=== PATIENT | male | born 1970 | race Two or more races ===

== ENCOUNTER 2017-08-21 07:04 | Emergency (ER) | payer OTHER ==
[2017-08-21 08:16] LABS: AMPHETAMINE/METHAMPHETAMINE NEG (NEG); BARBITURATES NEG (NEG); BENZODIAZEPINES NEG (NEG); CANNABINOIDS NEG (NEG); COCAINE NEG (NEG); METHADONE NEG (NEG); OPIATES NEG (NEG); PHENCYCLIDINE NEG (NEG)
[2017-08-21 12:16] VITALS: BP 184/126
== END 2017-08-21 07:52 | disposition home or self-care (01) ==
LOC: ER 07:04
DX: Z02.83 Encounter for blood-alcohol and blood-drug test (principal); Z53.21 Procedure and treatment not carried out due to patient leaving prior to being seen by health care provider
CPT/HCPCS: 36415; 80307; 99281; 99283; G0479

== ENCOUNTER 2020-01-30 06:24 | Inpatient (IN) | payer BC, OTHER ==
[~2020-01-30] VITALS: Ht 188 cm; Wt 88.4 kg
--- NOTE | 2020-01-30 06:40 | PHYS DOC ---
Past History Additional Past Medical Histor: Questionable prior kidney trouble Past Surgical History: No Surgical History Smoking: Non-smoker Alcohol Use: None Drug Use: None General Adult EDM: Chief Complaint: ABDOMINAL PAIN HPI: HPI: Patient is a 49-year-old male who presents to the emergency department for evaluation. He states that at about 3 AM he developed some abdominal pain located centrally, in his umbilical area, along with nausea and vomiting. He has not had any bloody emesis, or any diarrhea or bloody stools. He has not had any chest pain or shortness of breath. He arrives in the emergency department in acute pain, with dry heaves, and is diaphoretic. There are no known alleviating or exacerbating factors to his symptoms. He has not had similar symptoms in the past. Review of Systems: Review of Systems: Constitutional: Denies fever or chills Eyes: Denies change in visual acuity HENT: Denies nasal congestion or sore throat Respiratory: Denies cough or shortness of breath Cardiovascular: Denies chest pain or edema GI: As per HPI : Denies dysuria Musculoskeletal: Denies back pain or joint pain Integument: Denies rash Neurologic: Denies headache, focal weakness or sensory changes Endocrine: Denies polyuria or polydipsia Lymphatic: Denies swollen glands Psychiatric: Denies depression or anxiety Heart Score: Risk Factors: Risk Factors: DM, Current or recent (<one month) smoker, HTN, HLP, family history of CAD, obesity. Risk Scores: Score 0 - 3: 2.5% MACE over next 6 weeks - Discharge Home Score 4 - 6: 20.3% MACE over next 6 weeks - Admit for Clinical Observation Score 7 - 10: 72.7% MACE over next 6 weeks - Early Invasive Strategies Current Medications: Current Meds: Current Medications Medications (Trade) Dose Ordered Sig/Sergei Start Time Stop Time Status Last Admin Dose Admin Lactated Ringer's 1,000 ml @ 1,000 mls/hr Q1H 01/30/20 06:31 01/30/20 07:30 UNV Ondansetron HCl (Zofran) 4 mg 1X ONCE 01/30/20 06:45 01/30/20 06:46 UNV Physical Exam: PE: PHYSICAL EXAM: CONSTITUTIONAL: Well developed, well nourished HEAD: normocephalic, atraumatic EENT: PERRL, EOMI. Conjunctivae normal color, sclerae non-icteric; moist mucous membranes. NECK: Supple, non-tender; no meningismus. LUNGS: Lungs CTA, patient is hyperventilating. Normal air movement. HEART: Regular rate and rhythm, no murmur CHEST: No deformity; non-tender ABDOMEN: The abdomen is diffusely tender, with some voluntary guarding, without focal tenderness, rebound. There is some voluntary guarding present. Exam was somewhat limited secondary to the patient's discomfort and not being tolerant of exam. EXTREM: Normal ROM; no deformity, no calf tenderness. Normal pulses palpable in all extremities. There is no pedal edema. SKIN: No rash; the patient is diaphoretic. NEURO: Alert; normal speech and cognition; CN's grossly intact; strength grossly intact without focal deficit. BACK: No CVA TTP. Current Patient Data: Labs: Laboratory Tests Test 01/30/20 06:30 01/30/20 07:02 White Blood Count 11.9 x10^3/uL Red Blood Count 5.03 x10^6/uL Hemoglobin 16.3 g/dL Hematocrit 47.0 % Mean Corpuscular Volume 94 fL Mean Corpuscular Hemoglobin 33 pg Mean Corpuscular Hemoglobin Concent 35 g/dL Red Cell Distribution Width 13.8 % Platelet Count 233 x10^3/uL Neutrophils (%) (Auto) 67 % Lymphocytes (%) (Auto) 23 % Monocytes (%) (Auto) 9 % Eosinophils (%) (Auto) 1 % Basophils (%) (Auto) 0 % Neutrophils # (Auto) 8.0 x10^3uL Lymphocytes # (Auto) 2.7 x10^3/uL Monocytes # (Auto) 1.0 x10^3/uL Eosinophils # (Auto) 0.1 x10^3/uL Basophils # (Auto) 0.0 x10^3/uL Sodium Level 140 mmol/L Potassium Level 3.8 mmol/L Chloride Level 104 mmol/L Carbon Dioxide Level 24 mmol/L Anion Gap 12 Blood Urea Nitrogen 14 mg/dL Creatinine 1.4 mg/dL Estimated GFR (Cockcroft-Gault) 53.9 BUN/Creatinine Ratio 10 Glucose Level 142 mg/dL Calcium Level 9.4 mg/dL Total Bilirubin 1.2 mg/dL Aspartate Amino Transf (AST/SGOT) 91 U/L Alanine Aminotransferase (ALT/SGPT) 70 U/L Alkaline Phosphatase 93 U/L Total Protein 7.4 g/dL Albumin 3.7 g/dL Albumin/Globulin Ratio 1.0 Lipase 94342 U/L Lactic Acid Level 4.8 mmol/L Current Medications Medications (Trade) Dose Ordered Sig/Sergei Route PRN Reason Start Time Stop Time Status Last Admin Dose Admin Lactated Ringer's 1,000 ml @ 1,000 mls/hr Q1H IV 01/30/20 07:00 01/30/20 08:00 DC 01/30/20 06:45 Ondansetron HCl (Zofran) 4 mg 1X ONCE IVP 01/30/20 07:00 01/30/20 07:01 DC 01/30/20 06:45 Morphine Sulfate (Morphine 4mg Syringe) 4 mg 1X ONCE IV 01/30/20 07:00 01/30/20 07:01 DC 01/30/20 06:45 Lorazepam (Ativan Inj) 1 mg 1X ONCE IVP 01/30/20 07:00 01/30/20 07:01 DC 01/30/20 06:46 Iohexol (Omnipaque 300 Mg/ml) 75 ml 1X ONCE IV 01/30/20 07:00 01/30/20 07:01 DC 01/30/20 07:33 Morphine Sulfate (Morphine 4mg Syringe) 4 mg STK-MED ONCE .ROUTE 01/30/20 06:41 01/30/20 06:41 DC Lorazepam (Ativan Inj) 2 mg STK-MED ONCE .ROUTE 01/30/20 06:40 01/30/20 06:41 DC Info (Do NOT chart on this entry -- for MONITORING) 1 each PRN DAILY PRN MC SEE COMMENTS 01/30/20 06:45 02/01/20 06:44 Morphine Sulfate (Morphine 4mg Syringe) 4 mg 1X ONCE IV 01/30/20 07:15 01/30/20 07:16 DC 01/30/20 07:09 Sodium Chloride 1,000 ml @ 1,000 mls/hr 1X ONCE IV 01/30/20 07:15 01/30/20 08:14 DC 01/30/20 07:18 Ondansetron HCl (Zofran) 4 mg 1X ONCE IVP 01/30/20 07:15 01/30/20 07:18 DC 01/30/20 07:18 Hydromorphone HCl (Dilaudid) 1 mg 1X ONCE IV 01/30/20 08:15 01/30/20 08:16 DC 01/30/20 08:09 Ondansetron HCl (Zofran) 4 mg 1X ONCE IVP 01/30/20 08:15 01/30/20 08:16 DC 01/30/20 08:08 EKG: EKG: Normal sinus rhythm with a normal rate, normal axis, normal intervals, there are no acute ischemic ST/T changes. [] Radiology/Procedures: Radiology/Procedures: PROCEDURE: CT ABD PELV W/ IV CONTRST ONLY Examination: CT ABD PELV W/ IV CONTRST ONLY History: Reason: abdominal pain, NV, recent diagnosis of kidney failure Comparison/Correlation: None Findings: Axial images of the abdomen and pelvis with IV contrast. Sagittal and coronal reformatted images were provided. Visualized lung bases are clear. Small hiatal hernia is present. Liver, spleen, adrenal glands, and kidneys are unremarkable. Edematous appearance of the pancreas diffusely is noted. Moderate quantity of peripancreatic fluid is noted and this abuts the anterior pararenal fascia bilaterally. Associated contiguous perisplenic ascites is small in quantity. No biliary dilatation. Portal vein opacifies normally with contrast. No enlarged abdominal or pelvic lymph nodes. Moderate quantity of stool in the colon is present. No bowel obstruction or extraluminal gas. There is no inflammatory finding about cecum. Trace pelvic fluid appears be present. Prostate gland is enlarged measuring 5.4 cm transverse by 3.9 cm anteroposterior. Bilateral undescended testicles are present at the symphysis pubis level. Bony structures are unremarkable for the patient's age. Impression: Large quantity of peripancreatic fluid. No loculated collection. Edematous appearance of the pancreas. Findings are compatible with acute pancreatitis. No biliary dilatation. Prostatomegaly. Bilateral undescended testicles. Small hiatal hernia. [] Course & Med Decision Making: Course & Med Decision Making Pertinent Labs and Imaging studies reviewed. (See chart for details) [] 8:35 AM: The patient's condition remained stable, he appears more comfortable. I discussed the case with the hospitalist who will admit the p atient for further evaluation and monitoring. Although gallstone pancreatitis is a diagnostic possibility, the mild elevation in LFTs could also be related to inflammation. His LFTs will need to be monitored closely. There is no evidence of biliary obstruction on CT. Dragon Disclaimer: Dragon Disclaimer: This electronic medical record was generated, in whole or in part, using a voice recognition dictation system. Departure Departure: Impression: Primary Impression: Acute pancreatitis Disposition: ADMITTED INPATIENT Admitting Physician: Bran Chapman Condition: STABLE Referrals: SABRINA MATHEW MD (PCP) Justification of Admission: Justification of Admission: Justification of Admission Dx: Yes IMER DEJESUS MD Jan 30, 2020 06:40
[2020-01-30] MEDS ORDERED: MORPHINE SULFATE 4 MG/ML DISP.SYRIN. ONE (06:41)
[2020-01-30] MEDS ORDERED: CONTRAST GIVEN MC PRN (06:45)
[2020-01-30] MEDS ORDERED: ONDANSETRON PF 4 MG/2 ML VIAL. IVP ONE ×3 (07:00→08:15)
[2020-01-30] MEDS ORDERED: IOHEXOL 300 MG/ML 75 ML VIAL. IV ONE (07:00)
[2020-01-30] MEDS ORDERED: MORPHINE SULFATE 4 MG/ML DISP.SYRIN. IV ONE ×2 (07:00→07:15)
[2020-01-30] MEDS ORDERED: IV RINGERS SOLUTION,LACTATED 1,000 ML IV SCH (07:00)
[2020-01-30 07:06] LABS: BASO % 0 % (0-3); EOS # 0.1 x10^3/uL (0.0-0.7); EOS % 1 % (0-3); HEMOGLOBIN 16.3 g/dL (13.0-17.5); LYMPH # 2.7 x10^3/uL (1.0-4.8); LYMPH % 23 % (24-48); MEAN CORPUSCULAR HEMOGLOBIN 33 pg (25-35); MEAN CORPUSCULAR HGB CONC 35 g/dL (31-37); MEAN CORPUSCULAR VOLUME 94 fL (79-100); MONO % 9 % (0-9); NEUT % 67 % (31-73); PLATELET COUNT 233 x10^3/uL (140-400); RED BLOOD COUNT 5.03 x10^6/uL (4.30-5.70); RED CELL DISTRIBUTION WIDTH 13.8 % (11.5-14.5); WHITE BLOOD COUNT 11.9 x10^3/uL (4.0-11.0)
[2020-01-30 07:12] LABS: CALCIUM 9.4 mg/dL (8.5-10.1); CREATININE 1.4 mg/dL (0.7-1.3); GFR 53.9; POTASSIUM 3.8 mmol/L (3.5-5.1)
[2020-01-30] MEDS ORDERED: IV NORMAL SALINE 1,000ML 1,000 ML IV ONE (07:15)
[2020-01-30 07:19] LABS: ALBUMIN 3.7 g/dL (3.4-5.0); TOTAL BILIRUBIN 1.2 mg/dL (0.2-1.0); TOTAL PROTEIN 7.4 g/dL (6.4-8.2)
[2020-01-30] MEDS ORDERED: HYDROmorphone PF 1 MG/ML DISP.SYRIN IV ONE (08:15)
--- NOTE | 2020-01-30 08:30 | RAD ---
Examination: CT ABD PELV W/ IV CONTRST ONLY History: Reason: abdominal pain, NV, recent diagnosis of kidney failure Comparison/Correlation: None Findings: Axial images of the abdomen and pelvis with IV contrast. Sagittal and coronal reformatted images were provided. Visualized lung bases are clear. Small hiatal hernia is present. Liver, spleen, adrenal glands, and kidneys are unremarkable. Edematous appearance of the pancreas diffusely is noted. Moderate quantity of peripancreatic fluid is noted and this abuts the anterior pararenal fascia bilaterally. Associated contiguous perisplenic ascites is small in quantity. No biliary dilatation. Portal vein opacifies normally with contrast. No enlarged abdominal or pelvic lymph nodes. Moderate quantity of stool in the colon is present. No bowel obstruction or extraluminal gas. There is no inflammatory finding about cecum. Trace pelvic fluid appears be present. Prostate gland is enlarged measuring 5.4 cm transverse by 3.9 cm anteroposterior. Bilateral undescended testicles are present at the symphysis pubis level. Bony structures are unremarkable for the patient's age. Impression: Large quantity of peripancreatic fluid. No loculated collection. Edematous appearance of the pancreas. Findings are compatible with acute pancreatitis. No biliary dilatation. Prostatomegaly. Bilateral undescended testicles. Small hiatal hernia. PQRS Compliance Statement: One or more of the following individualized dose reduction techniques were utilized for this examination: 1. Automated exposure control 2. Adjustment of the mA and/or kV according to patient size 3. Use of iterative reconstruction technique Electronically signed by: Brandon Rosenberg MD (01/30/2020 8:27 AM) [id number]
[2020-01-30] MEDS ORDERED: IV DEXTROSE 5%-LACT RINGERS 1,000 ML IV ONE (08:45)
[2020-01-30 09:16] LABS: BACTERIA,URINE 0 /HPF (0-FEW); BILIRUBIN,URINE NEG (NEG); CLARITY,URINE CLEAR; COLOR,URINE YELLOW; GLUCOSE,URINE NEG (NEG); NITRITE,URINE NEG (NEG); RBC,URINE 0 /HPF (0-2); SQUAMOUS EPITHELIAL CELL,UR FEW /LPF; UROBILINOGEN,URINE 0.2 mg/dL (0.2 mg/dL); WBC,URINE OCC /HPF (0-4)
[2020-01-30 09:18] LABS: BARBITURATES NEG (NEG); BENZODIAZEPINES NEG (NEG); CANNABINOIDS NEG (NEG); COCAINE NEG (NEG); METHADONE NEG (NEG); OPIATES POS (NEG); PHENCYCLIDINE NEG (NEG)
[2020-01-30 09:24] LABS: AMPHETAMINE/METHAMPHETAMINE NEG (NEG)
[2020-01-30 10:00] VITALS: BP 99/61
[2020-01-30] MEDS: MORPHINE SULFATE 4 MG/ML DISP.SYRIN. IVP PRN ×2 (10:20→13:06)
--- NOTE | 2020-01-30 12:12 | EKG ---
[address] [address] Test Date: 2020-01-30 Test Time: 06:59:13 Pat Name: BETTYE SOSA Department: Room: Gender: M Division Order Technician: : 1970 Requested By: IMER DEJESUS Order Number: [id number] Reading MD: Measurements Intervals [place] Rate: 56 P: 90 AK: 180 QRS: 63 QRSD: 102 T: 56 QT: 464 QTc: 450 Interpretive Statements SINUS RHYTHM NO SPECIFIC ECG ABNORMALITIES RI6.02 No previous ECG available for comparison
--- NOTE | 2020-01-30 12:51 | NUR ---
The patient, BETTYE SOSA, 49 y/o, M admitted by CRESCENCIO CORNELIUS MD, was given written information regarding hospital policies, unit procedures and contact persons. Valuables were checked and left with patient. Pt arrived to unit via EMS from ED at 0945. Assisted him to ambulate to restroom, pt slightly unsteady but it is due to pain medications from ED. Oriented to room, pain medication administered, call light within reach. Will continue to monitor.
[2020-01-30] MEDS: ONDANSETRON PF 4 MG/2 ML VIAL. IVP PRN ×3 (13:06→21:56)
[2020-01-30] MEDS: IV DEXTROSE 5 %-0.45 % NACL 1,000 ML IV SCH (14:46)
[2020-01-30 14:50] VITALS: BP 131/74
[2020-01-30] MEDS: HYDROmorphone PF 2 MG/ML VIAL IV PRN ×3 (14:50→21:18)
--- NOTE | 2020-01-30 16:04 | RAD ---
INDICATION : Reason: Nausea/Vomitting-Pancreatitis on CT scan-??? acute cholecystitis / Spl. Instructions: / History: COMPARISON: CT earlier same day TECHNIQUE: Multiple ultrasound images obtained through the abdomen in grayscale and color. FINDINGS: Liver: Mildly echogenic Gallbladder: Gallstones are visualized. IVC: Partially distended at level of liver. Common Bile Duct: Not dilated. Pancreas: Fluid is seen at pancreas pancreatic duct measures up to about 2-3 mm. Right Kidney: No hydronephrosis. IMPRESSION: * Fluid is seen adjacent to the pancreas with pancreatic ductal dilatation in this patient with known pancreatitis. There is some free fluid seen. * Gallstones are visualized. Portions the gallbladder wall is prominent in thickness measuring up to about 6 mm. Could be from primary gallbladder inflammation, reactive changes to adjacent hepatic or pancreatic inflammation or secondary to systemic process such as hypoproteinemia. If further evaluation for cholecystitis is desired nuclear hepatobiliary scan could BE obtained Electronically signed by: Angel Valentine MD (01/30/2020 4:01 PM) [id number]
--- NOTE | 2020-01-30 17:07 | HP ---
ADMIT DATE: 01/30/2020 HISTORY OF PRESENT ILLNESS: The patient is a 49-year-old male patient who presented to the Emergency Room for evaluation. He stated about 3:00 in the morning, he developed some abdominal pain located centrally in his umbilical area along with nausea and vomiting, has not had any bloody emesis or any diarrhea or bloody stool, has not had any chest pain or shortness of breath. He arrived in the Emergency Room in acute pain with dry heaves and was diaphoretic. There are no alleviating or exacerbating factors in his symptoms. He has never had similar symptoms in the past. He was evaluated in the Emergency Room and his lab work showed that the patient has leukocytosis with a white cell count of 11,900. His chemistry showed his serum lipase was ____. His liver enzymes were slightly elevated, although alkaline phosphatase was normal. He has lactic acidosis and creatinine slightly elevated 1.4. His urinalysis was unremarkable and toxic screen was positive for opiates. He has had a CT scan of the abdomen and pelvis with IV contrast, which showed that the visualized lung bases are clear and he has a small hiatal hernia. The liver, spleen, adrenal glands and kidneys are unremarkable. Edematous appearance of the pancreas diffusely is noted. Moderate quantity of peripancreatic fluid is noted and this abuts the anterior pararenal fascia bilaterally associated with contiguous perisplenic ascites ____ dilatation. The portal vein opacifies normally with contrast. He has no enlarged abdominal or pelvic lymph nodes. There is moderate quantity of stool in the colon present, no bowel obstruction or extraluminal gas. There is no inflammatory finding about the cecum, trace pelvic fluid present. His prostate gland is enlarged measuring 5.4 cm transverse x 3.9 cm anterior posterior. Bilateral undescended testicles are present at the symphysis pubis level. Bony structures are unremarkable for the patient's age. The patient was basically diagnosed with acute pancreatitis, benign prostatic hypertrophy, bilateral undescended testicles and small hiatal hernia. The patient was admitted for pain management. He was kept n.p.o., started on IV fluid, IV hydromorphone and Zofran. He does not drink alcohol. There is no obvious acute cholecystitis and he apparently carries a diagnosis of hyperlipidemia, although he is not on any medication for that. PAST MEDICAL HISTORY: An episode of acute kidney injury that has resolved spontaneously according to him and has also hyperlipidemia. PAST SURGICAL HISTORY: Unremarkable. ALLERGIES: He has no known drug allergies. MEDICATIONS: He is currently on no medication by prescription or over the counter. FAMILY HISTORY: He has 3 living sisters, all older, but does not keep in contact with them. Has 1 older brother at age of 18 as he was shocked. He has two half-brothers, one of overdose and the other one also was , but does not know the cause of his . His father at the age of 73 because of myocardial infarction and mother at age of 46 because of brain aneurysm. SOCIAL HISTORY: He is . He has 1 son and 1 daughter. He quit smoking in his early 20s. He does not drink alcohol or use recreational drugs. PHYSICAL EXAMINATION: GENERAL: When I examined him this afternoon, he was clearly in severe pain. There was no pallor, jaundice, cyanosis or thyromegaly. No jugular venous distention. No lower limb edema. VITAL SIGNS: His heart rate was 45, blood pressure was 99/61, temperature was 97, respiratory rate was 16, and oxygen saturation was 100%. HEAD, EYES, EARS, NOSE AND THROAT: Showed normocephalic, atraumatic. NECK: Supple. HEART: Showed normal first and second heart sounds. No gallop or murmur. CHEST: Clear to auscultation. No crepitation or rhonchi. ABDOMEN: Slightly distended, mostly soft with tenderness mostly in the epigastric area. No guarding or rigidity. No organomegaly. All hernial orifices intact. Bowel sounds normal. NEUROLOGICALLY: He was awake, alert, responding appropriately. All cranial nerves intact. EXTREMITIES: He moves extremities without difficulty. LABORATORY DATA: His lab work showed a white cell count of 11,900, hemoglobin 16, hematocrit 47, MCV 94 and platelet count of 233,000. Serum sodium was 140, potassium 3.8, chloride 104, bicarbonate 24, anion gap of 12, BUN 14, creatinine 1.4. Estimated GFR was 54 mL per minute. His glucose was 142, lactic acid was 4.8, calcium was 9.4. Total bilirubin, AST, and ALT were elevated. Alkaline phosphatase is normal. Total protein 7.4, albumin was 3.7. Serum lipase was ____. Urinalysis showed the urine was yellow, clear with a pH of 5.5, specific gravity of 1.010. The urine was negative for protein, glucose. There was a small amount of ketones. The urine was negative for blood, nitrite and leukocyte esterase. There were no rbc's, occasional wbc's, and very few bacteria. His urine toxic screen was positive for opiates, but negative for methadone, barbiturates, phencyclidine, amphetamine, methamphetamine, benzodiazepine, cocaine, cannabinoids and alcohol. His CT scan was consistent with acute pancreatitis. He has also enlarged prostate, bilateral undescended testicles and small hiatal hernia. ASSESSMENT AND PLAN: The patient will be kept n.p.o., continue with IV fluid, IV hydromorphone and Zofran. We will follow his labs on a daily basis. I checked his fasting lipid profile to rule out the possibility of hypertriglyceridemia as a cause of his pancreatitis ____ DICTATION ENDS HERE CRESCENCIO CORNELIUS MD DR: ELISEO/monique JOB#: [id number] / [id number]
[2020-01-30 20:16] VITALS: BP 158/90
[2020-01-30 23:44] VITALS: BP 159/89
[2020-01-31] MEDS: IV DEXTROSE 5 %-0.45 % NACL 1,000 ML IV SCH ×2 (00:22→10:12)
[2020-01-31] MEDS: HYDROmorphone PF 2 MG/ML VIAL IV PRN ×6 (00:52→21:11)
[2020-01-31] MEDS: ONDANSETRON PF 4 MG/2 ML VIAL. IVP PRN ×4 (02:52→17:10)
[2020-01-31 06:09] VITALS: BP 147/88
[2020-01-31 06:21] LABS: HEMATOCRIT 49.7 % (39.0-53.0); RED BLOOD COUNT 5.25 x10^6/uL (4.30-5.70); RED CELL DISTRIBUTION WIDTH 14.2 % (11.5-14.5); WHITE BLOOD COUNT 17.5 x10^3/uL (4.0-11.0)
[2020-01-31 06:30] LABS: ALBUMIN 3.2 g/dL (3.4-5.0); ALBUMIN/GLOBULIN RATIO 0.9 (1.0-1.7); CALCIUM 8.2 mg/dL (8.5-10.1); CREATININE 1.4 mg/dL (0.7-1.3); GFR 53.9; POTASSIUM 4.4 mmol/L (3.5-5.1); TOTAL BILIRUBIN 0.9 mg/dL (0.2-1.0); TOTAL PROTEIN 6.6 g/dL (6.4-8.2)
[2020-01-31] MEDS ORDERED: ONDANSETRON PF 4 MG/2 ML VIAL. ONE (11:20)
[2020-01-31 11:24] VITALS: BP 156/96
--- NOTE | 2020-01-31 12:31 | PN ---
DATE: 01/31/2020 SUBJECTIVE: The patient is resting, slightly propped up in bed, sleeping comfortably, in no apparent distress. He apparently just received his hydromorphone. He denied any further episodes of nausea and vomiting. His lab work showed that his white cell count went up 17,500; however, his lactic acid is down to 2.2. His serum lipase is down to 3530. PHYSICAL EXAMINATION: GENERAL: When I examined him, he looked well and was clearly in no apparent respiratory distress. No pallor, jaundice, cyanosis or thyromegaly. No jugular venous distention or limb edema. VITAL SIGNS: His heart rate was 82, blood pressure 156/96, temperature was 98.6, respiratory rate 20, and oxygen saturation was 98%. HEAD, EYES, EARS, NOSE AND THROAT: Normocephalic, atraumatic. NECK: Supple. CARDIAC: Normal first and second heart sounds. No gallop or murmur. CHEST: Clear to auscultation. No crepitation or rhonchi. ABDOMEN: Distended, soft with tenderness mostly in epigastric area. No guarding or rigidity. No organomegaly. All hernial orifice intact. Bowel sounds normal. NEUROLOGIC: He was awake, alert, responding appropriately. All cranial nerves intact. He moves extremities without difficulty. His intake and output are incompletely recorded. LABORATORY DATA: His lab work this morning showed a serum sodium 136, potassium 4.4, chloride 102, bicarbonate 29, anion gap of 5, BUN 13, creatinine 1.4, estimated GFR was 53 mL per minute. His glucose 166, calcium was 8.2. Total bilirubin, AST, ALT, alkaline phosphatase were normal. Total protein 6.6, albumin 3.2, lipase was 3530. His white cell count was 17,500, hemoglobin 17, hematocrit 49, MCV 95, and platelet count of 170,000. ASSESSMENT: His abdominal ultrasound showed that the fluid is seen adjacent to the pancreas and pancreatic ductal dilatation in this patient with known pancreatitis. There is some free fluid seen. Gallstones are visualized portion of the gallbladder wall is prominent in thickness measuring up to about 6 mm, could be from primary gallbladder inflammation and reactive changes to adjacent hepatic and pancreatic inflammation secondary to systemic process. If further evaluation for cystitis desired a nuclear hepatobiliary scan could be obtained. PLAN: My plan is to continue with IV fluid, continue with n.p.o. status. I will start him on Zosyn 2.25 grams IV every 8 hours. We will arrange for him to have hepatobiliary scan and we will repeat all his labs again tomorrow. We will consult the surgical team once his acute pancreatitis subsides. CRESCENCIO CORNELIUS MD DR: ELISEO/monique JOB#: [id number] / [id number]
[2020-01-31] MEDS: PIPERACILLIN/TAZOBACTAM 3.375 GM in IV NORMAL SALINE 50ML 50 ML IV SCH ×2 (12:52→17:34)
--- NOTE | 2020-01-31 13:54 | NUR ---
PATIENT IS A/O X4 UPON ASSESSMENT, C/O ABDOMINAL PAIN AND NAUSEA, REQUESTED MEDICATION, DILAUDID AND ZOFRAN GIVEN ORDERED. PT CONTINUED TO STAY NPO D/T HEPATOBILIARY STUDY ORDER. WILL CONTINUE TO MONITOR.
[2020-01-31 15:24] VITALS: BP 159/98
[2020-01-31] MEDS ORDERED: SINCALIDE IV ONE (16:00)
[2020-01-31] MEDS ORDERED: NORMAL SALINE IV ONE (16:00)
--- NOTE | 2020-01-31 17:00 | NUR ---
GOT A PHONE CALL FROM [employer], REPORTED PATIENT IS IN PAIN , REQUESTED PAIN MEDS. DR CORNELIUS WAS PAGED, GOT ORDER FOR FENTANYL 50MCG X1 IVP. WCTM.
--- NOTE | 2020-01-31 17:57 | RAD ---
HEPATOBILIARY SCAN WITH EJECTION FRACTION History: acute acalculous cholecystitis / epigastric pain, nausea and vomiting x1 day. Procedure: Serial static images are obtained of the liver and biliary system in the frontal projection following IV administration of 5.5 mCi of Technetium 99m Choletec. After filling of the gallbladder, 1.8 mcg of sincalide were infused over 30 minutes and dynamic imaging continued over this period. The gallbladder ejection fraction was calculated. Findings: There is prompt hepatic clearance of tracer from the blood pool. There is homogeneous distribution throughout the liver. There is normal filling of the gallbladder and normal emptying into the biliary system and small bowel. The gallbladder ejection fraction measures 23% (normal gallbladder EF is 35% or greater). IMPRESSION: 1. The cystic duct and common bile duct are patent. Negative for acute cholecystitis. 2. The gallbladder ejection fraction is abnormal measuring 23%. Findings may indicate gallbladder dyskinesia or chronic cholecystitis. Electronically signed by: Juventino Walden MD (01/31/2020 5:54 PM) [id number]
[2020-01-31 19:07] VITALS: BP 134/87
[2020-01-31 23:15] VITALS: BP 156/88
[2020-02-01] MEDS: PIPERACILLIN/TAZOBACTAM 3.375 GM in IV NORMAL SALINE 50ML 50 ML IV SCH ×5 (00:17→23:22)
[2020-02-01] MEDS: IV DEXTROSE 5 %-0.45 % NACL 1,000 ML IV SCH ×2 (01:02→12:15)
[2020-02-01] MEDS: HYDROmorphone PF 2 MG/ML VIAL IV PRN ×7 (01:21→23:22)
[2020-02-01 06:45] LABS: HEMATOCRIT 47.5 % (39.0-53.0); HEMOGLOBIN 16.2 g/dL (13.0-17.5); RED CELL DISTRIBUTION WIDTH 14.6 % (11.5-14.5); WHITE BLOOD COUNT 20.8 x10^3/uL (4.0-11.0)
[2020-02-01 07:13] LABS: ALBUMIN 2.6 g/dL (3.4-5.0); ALBUMIN/GLOBULIN RATIO 0.7 (1.0-1.7); CALCIUM 8.1 mg/dL (8.5-10.1); CREATININE 1.6 mg/dL (0.7-1.3); GFR 46.2; POTASSIUM 4.2 mmol/L (3.5-5.1); TOTAL BILIRUBIN 1.7 mg/dL (0.2-1.0); TOTAL PROTEIN 6.2 g/dL (6.4-8.2)
[2020-02-01 07:30] VITALS: BP 147/88
[2020-02-01] MEDS: ONDANSETRON PF 4 MG/2 ML VIAL. IVP PRN ×3 (08:26→18:32)
[2020-02-01 10:16] VITALS: BP 141/85
[2020-02-01] MEDS ORDERED: METOCLOPRAMIDE HCL 10 MG/2 ML VIAL. IVP ONE (11:45)
[2020-02-01] MEDS ORDERED: IV NORMAL SALINE 1,000ML 1,000 ML IV ONE (12:15)
--- NOTE | 2020-02-01 12:27 | PN ---
DATE: 02/01/2020 SUBJECTIVE: The patient is resting, slightly propped up in bed, in no apparent respiratory distress. He continued to complain of pain, nausea and vomiting. OBJECTIVE: GENERAL: On examining him, he looked well and was clearly in no apparent respiratory distress. No pallor, jaundice, cyanosis or thyromegaly. No jugular venous distention. No lower limb edema. VITAL SIGNS: His heart rate was 83, blood pressure was 141/85, temperature was 98.6, respiratory rate 20, and oxygen saturation was 96%. HEAD, EYES, EARS, NOSE AND THROAT: Showed he is normocephalic, atraumatic. NECK: Supple. HEART: Showed normal first and second heart sounds. No gallop, rub or murmur. CHEST: Clear to auscultation. No crepitation or rhonchi. ABDOMEN: Distended. Tenderness mostly in the epigastric area. No guarding or rigidity. No organomegaly. All hernial orifice intact. Bowel sounds normal. NEUROLOGIC: He was awake, alert, responding appropriately. All cranial nerves are intact. He moves extremities without difficulty. His intake over the last 24 hours was 2100, no output was recorded. LABORATORY DATA: As of this morning shows a white cell count is going up to 20,800, hemoglobin 16, hematocrit 47, MCV 95, and platelet count of 137,000. His chemistry showed that his serum sodium is 134, potassium 4.2, chloride 101, bicarbonate 28, anion gap of 5, BUN 21, creatinine 1.6, estimated GFR was 46 mL per minute, his glucose 154, calcium was 8.1. Total bilirubin, AST, ALT, alkaline phosphatase were normal. Total protein 6.2, albumin was 0.7. His serum triglycerides were 55, total cholesterol was 164, LDL was 106, VLDL was 11, HDL was 47 and ratio was 3. Serum lipase is down to 1766. ASSESSMENT: 1. Acute pancreatitis. 2. He has also large quantity of peripancreatic fluid, but no loculated fluid collection. 3. Acute on chronic kidney injury. His creatinine is slightly up from 1.4-1.6. 4. Mild hyponatremia. His HIDA scan showed that the cystic duct and common bile duct are patent negative for acute cholecystitis. The gallbladder ejection fraction is abnormal, measuring 23%. Findings indicate biliary dyskinesia or chronic cholecystitis. PLAN: My plan is to continue with IV fluid, probably a liter of normal saline bolus and continue with D5W. I will discuss with the surgical team whether it is time to consider laparoscopic cholecystectomy. CRESCENCIO CORNELIUS MD DR: ELISEO/monique JOB#: [id number] / [id number]
[2020-02-01 15:59] VITALS: BP 144/84
[2020-02-01 18:45] VITALS: BP 134/89
[2020-02-02] MEDS: IV DEXTROSE 5 %-0.45 % NACL 1,000 ML IV SCH ×2 (00:35→09:59)
[2020-02-02 01:39] VITALS: BP 121/78
[2020-02-02] MEDS: HYDROmorphone PF 2 MG/ML VIAL IV PRN ×5 (05:20→20:43)
[2020-02-02] MEDS: PIPERACILLIN/TAZOBACTAM 3.375 GM in IV NORMAL SALINE 50ML 50 ML IV SCH ×4 (05:20→23:50)
[2020-02-02 06:04] VITALS: BP 132/82
[2020-02-02 07:19] LABS: HEMATOCRIT 40.3 % (39.0-53.0); HEMOGLOBIN 13.8 g/dL (13.0-17.5); RED BLOOD COUNT 4.25 x10^6/uL (4.30-5.70); RED CELL DISTRIBUTION WIDTH 14.2 % (11.5-14.5); WHITE BLOOD COUNT 12.8 x10^3/uL (4.0-11.0)
[2020-02-02 07:41] LABS: ALBUMIN 2.3 g/dL (3.4-5.0); ALBUMIN/GLOBULIN RATIO 0.6 (1.0-1.7); CREATININE 1.2 mg/dL (0.7-1.3); GFR 64.4; POTASSIUM 3.7 mmol/L (3.5-5.1); TOTAL BILIRUBIN 1.9 mg/dL (0.2-1.0); TOTAL PROTEIN 5.9 g/dL (6.4-8.2)
[2020-02-02] MEDS: ONDANSETRON PF 4 MG/2 ML VIAL. IVP PRN ×3 (08:06→15:17)
[2020-02-02] MEDS: PANTOPRAZOLE IV 40 MG VIAL. IVP SCH ×2 (09:00→14:59)
[2020-02-02 10:58] VITALS: BP 133/83
--- NOTE | 2020-02-02 14:22 | RAD ---
CT SCAN OF THE ABDOMEN AND PELVIS WITH IV CONTRAST. History: Reason: abdominal pain / Spl. Instructions: / History: Comparison:January 30, 2020. Procedure: Contiguous axial images of the abdomen and pelvis were performed after the administration of 75 cc of Isovue 370 IV contrast. Oral contrast: No. Findings: There is mild pleural effusions with adjacent infiltrates. There is fluid around the liver and spleen and around the pancreas and there is edematous changes of the pancreas surrounding inflammation. Fluid tracks along the paracolic gutters and there is free fluid in the pelvis. The appendix is not well seen. The gallbladder appears normal. Liver: Unremarkable Spleen: Unremarkable Adrenal Glands: Unremarkable Kidneys: Unremarkable There is no mass or lymphadenopathy. There is no free air. There is no free fluid. The urinary bladder appears normal. Impression: 1. New small pleural effusions adjacent infiltrates. 2. Diffuse edema of the pancreas and surrounding inflammation and fluid is likely pancreatitis. This appears mildly mildly worse. 3. Mild ascites. This appears moderately worse. End impression PQRS Compliance Statement: One or more of the following individualized dose reduction techniques were utilized for this examination: 1. Automated exposure control 2. Adjustment of the mA and/or kV according to patient size 3. Use of iterative reconstruction technique the Electronically signed by: Rod Velasco III, MD (02/02/2020 2:19 PM) [id number]
[2020-02-02] MEDS: IV NORMAL SALINE 1,000ML 1,000 ML IV SCH ×2 (14:59→23:50)
[2020-02-02 15:02] VITALS: BP 136/87
--- NOTE | 2020-02-02 15:08 | PN ---
DATE: 02/02/2020 SUBJECTIVE: The patient is resting, slightly propped up in bed, in no apparent respiratory distress. On questioning him, he stated that his pain is worse, although number zamora, all his numbers are improving. His lipase is down from 40,620. His creatinine has actually come down from 1.6 to 1.2. His white cell count is also down from 20,000-12.8. I did repeat his CT scan of the abdomen and pelvis without contrast, which showed that there is a new small left pleural effusion, with adjacent infiltrate, diffuse edema of the pancreas and surrounding inflammation of fluid. It is likely pancreatitis. This appears mildly worse. He has mild ascites that appears moderately worse. PHYSICAL EXAMINATION: GENERAL: When I examined him, he looked well and was clearly in no apparent respiratory distress. No pallor, jaundice, cyanosis or thyromegaly. No jugular venous distention or limb edema. VITAL SIGNS: Her heart rate was 80, blood pressure was 133/83, temperature was 97.7, respiratory rate was 18 and oxygen saturation was 95% on room air. HEAD, EYES, EARS, NOSE AND THROAT: Normocephalic, atraumatic. NECK: Supple. HEART: Showed normal first and second heart sounds with no gallop, rub or murmur. CHEST: Showed central trachea, equal bilateral expansion, air entry, vesicular sounds. No crepitation or rhonchi. ABDOMEN: Distended, soft. Tenderness mostly in the epigastric area. No guarding or rigidity. No organomegaly. All hernial orifices intact. Bowel sounds normal. NEUROLOGIC: He was awake, alert, responding appropriately. All cranial nerves are intact. He moves extremities without difficulty, ambulates without assistance or assistive devices. His intake over the last 24 hours was 1200, no output was recorded. LABORATORY DATA: His lab work this morning showed a white cell count of 12,800, hemoglobin 13.8, hematocrit 40, MCV 95, and platelet count of 128,000. His chemistry showed a serum sodium of 133, potassium 3.7, chloride 101, bicarbonate 28, anion gap of 4, BUN 14, creatinine 1.2, estimated GFR was 64 mL per minute. His glucose 165, calcium was 8. Total bilirubin was 1.9. AST and ALT, alkaline phosphatase are normal. Total protein was 5.9, albumin 2.3 and his lipase was 620. ASSESSMENT: 1. Acute pancreatitis, resolving. HIDA scan showed possible biliary dyskinesia versus chronic pancreatitis as cystic duct and common bile duct are patent, negative for acute cholecystitis. 2. Acute on chronic kidney injury, improving. His creatinine is down from 1.6 to 1.2, mild hyponatremia. PLAN: The plan is to continue with IV antibiotic. I will increase the hydromorphone to 4 mg and change the IV fluid to normal saline. Repeat all his labs tomorrow morning and if his lipase normalized, I will transfer him to [facility] for evaluation by the patient service coordinator as well as surgical team. CRESCENCIO CORNELIUS MD DR: ELISEO/monique JOB#: [id number] / [id number]
[2020-02-02 19:50] VITALS: BP 132/79
[2020-02-02] MEDS: DOCUSATE SODIUM 100 MG CAPSULE PO SCH (20:42)
[2020-02-02 22:58] VITALS: BP 129/75
[2020-02-03] MEDS: HYDROmorphone PF 2 MG/ML VIAL IV PRN ×4 (00:42→13:27)
[2020-02-03] MEDS: PIPERACILLIN/TAZOBACTAM 3.375 GM in IV NORMAL SALINE 50ML 50 ML IV SCH ×2 (05:05→11:50)
[2020-02-03 05:10] VITALS: BP 138/78
[2020-02-03 06:15] LABS: HEMATOCRIT 37.3 % (39.0-53.0); RED BLOOD COUNT 3.94 x10^6/uL (4.30-5.70); RED CELL DISTRIBUTION WIDTH 14.1 % (11.5-14.5); WHITE BLOOD COUNT 10.5 x10^3/uL (4.0-11.0)
[2020-02-03 06:27] LABS: CALCIUM 7.8 mg/dL (8.5-10.1); CREATININE 1.2 mg/dL (0.7-1.3); GFR 64.4; POTASSIUM 3.4 mmol/L (3.5-5.1)
[2020-02-03] MEDS: PANTOPRAZOLE IV 40 MG VIAL. IVP SCH ×2 (08:18→17:01)
[2020-02-03] MEDS ORDERED: POLYETHYLENE GLYCOL 3350 17 GM PACKET. PO SCH (09:00)
[2020-02-03] MEDS: DOCUSATE SODIUM 100 MG CAPSULE PO SCH (09:00)
[2020-02-03] MEDS: ONDANSETRON PF 4 MG/2 ML VIAL. IVP PRN (10:07)
[2020-02-03 10:23] VITALS: BP 130/80
[2020-02-03] MEDS: IV NORMAL SALINE 1,000ML 1,000 ML IV SCH (11:00)
--- NOTE | 2020-02-03 12:59 | DS ---
DATE OF DISCHARGE: 02/03/2020 HOSPITAL COURSE: The patient is a 49-year-old male patient who was admitted on 01/30/2020 with severe abdominal pain located centrally in his umbilical area with nausea and vomiting. He was extensively investigated in the Emergency Room, was found to have mild leukocytosis. His serum lipase was found to be 40,256. Also lactic acidosis and mildly impaired kidney function. He was admitted with acute pancreatitis, kept n.p.o., started on IV fluid, pain management and we monitored his serum lipase, has gradually came down. Initial CT scan showed the patient has large quantity of peripancreatic fluid. No loculated collection. Edematous appearance of the pancreas. Findings are compatible with acute pancreatitis. No biliary dilatation. He has also enlarged prostate, bilateral undescended testicles, small hiatal hernia. We did abdominal ultrasound which basically showed that the gallstones are visualized. Portion of the gallbladder wall is prominent in thickness measuring up to about 6 mm, could be from primary gallbladder inflammation, reactive changes to adjacent hepatic or pancreatic inflammation or secondary systemic process such as hypoproteinemia. We did a HIDA scan, showed cystic duct and common bile duct are patent, negative for acute cholecystitis. The gallbladder ejection fraction is abnormal measuring 23%. Finding may indicate gallbladder dyskinesia or chronic cholecystitis. I spoke with Dr. Tay who basically recommended that the patient needs to have his gallbladder removed at this admission, but to wait for the last serum lipase and pain to be much better controlled and his serum lipase actually came down today to 178 from 40,000. His kidney function also has improved. His white cell count has normalized, we did treat him empirically with IV Zosyn. PHYSICAL EXAMINATION: GENERAL: When I saw him today, he looked well and was clearly in no apparent respiratory distress. No pallor, jaundice, cyanosis or thyromegaly. No jugular venous distention. No limb edema. VITAL SIGNS: Heart rate was 89, blood pressure was 130/80, temperature 98.2, respiratory rate 22, and oxygen saturation was 94%. HEAD, EYES, EARS, NOSE AND THROAT: Showed normocephalic, atraumatic. NECK: Supple. HEART: Showed normal first and second heart sounds. No gallop or murmur. CHEST: Clear to auscultation. No crepitation or rhonchi. ABDOMEN: Distended, soft. He continued to have some tenderness in the epigastric area, but no guarding or rigidity. No organomegaly. All hernial orifice intact. Bowel sounds normal. NEUROLOGIC: He was awake, alert, responding appropriately. All cranial nerves intact. EXTREMITIES: He moves extremities without difficulty, ambulates without assistance or assistive devices. LABORATORY WORK: His lab work this morning showed a white cell count of 10,500, hemoglobin 13, hematocrit 37, MCV 95, and platelet count of 149,000. His chemistry showed a serum sodium 136, potassium 3.4, chloride 102, bicarbonate 28, anion gap of 6, BUN 13, creatinine 1.2, estimated GFR was 64 mL per minute. His glucose 108, calcium was 7.8. Serum lipase is down to 178. DISCHARGE MEDICATIONS: The patient will be transferred to [facility] to continue on MiraLax 17 grams daily, Colace 100 mg twice a day, normal saline at 100 mL IV, hydromorphone 4 mg IV every 3 hours, Protonix 40 mg once a day, ondansetron 4 mg every 4 hours and piperacillin and tazobactam 3.375 grams IV every 6 hours. FINAL DISCHARGE DIAGNOSES: Acute pancreatitis, resolved; biliary dyskinesia/chronic pancreatitis. The patient will be transferred to [facility] for laparoscopic cholecystectomy. CRESCENCIO CORNELIUS MD DR: ELISEO/monique JOB#: [id number] / [id number]
[2020-02-03 15:29] VITALS: BP 138/82
--- NOTE | 2020-02-03 18:03 | NUR ---
PATIENT IS TRANSFERRED TO [facility] FOR CHOLECYSTECTOMY BY EMS. VS ARE STABLE, CONSENT TO TRANSFER REVIEWED WITH PT AND SIGNED. REPORT IS GIVEN TO YAHAIRA GARCIA. PT LEFT ROOM VIA EMS.
== END 2020-02-03 18:05 | disposition short-term general hospital (02) | DRG 438 ==
LOC: ER 06:24 → 1 SOUTH 09:31
PROVIDERS: ADMIT Internal Medicine; ATTEND Internal Medicine
DX: K85.90 Acute pancreatitis without necrosis or infection, unspecified (principal); N17.0 Acute kidney failure with tubular necrosis; E87.1 Hypo-osmolality and hyponatremia; R18.8 Other ascites; K80.10 Calculus of gallbladder with chronic cholecystitis without obstruction; E87.2 Acidosis; E78.5 Hyperlipidemia, unspecified; N40.0 Benign prostatic hyperplasia without lower urinary tract symptoms; K44.9 Diaphragmatic hernia without obstruction or gangrene; N18.9 Chronic kidney disease, unspecified; K86.1 Other chronic pancreatitis; E77.8 Other disorders of glycoprotein metabolism; K82.8 Other specified diseases of gallbladder; Z20.828 Contact with and (suspected) exposure to other viral communicable diseases; Q53.20 Undescended testicle, unspecified, bilateral; Z87.891 Personal history of nicotine dependence; Z82.49 Family history of ischemic heart disease and other diseases of the circulatory system
CPT/HCPCS: 36415; 74176; 74177; 76705; 78227; 80048; 80053; 80061; 80307; 81001; 83605; 83690; 85025; 85027; 93005; 96361; 96374; 96375; 96376; A9537; C9113; J1170; J2060; J2270; J2405; J2543; J2765; J2805; J3010; J7120; Q9967; 99285-25; J7030; U0003-CS